=== PATIENT | female | born 1955 | race African-American/Black ===

== ENCOUNTER 2017-05-26 02:20 | Emergency (ER) | payer BC, SELFPAY | END 2017-05-26 03:03 | disposition home or self-care (01) | LOC: ERS 02:20 | DX: H61.23 Impacted cerumen, bilateral (principal); B35.0 Tinea barbae and tinea capitis; I10 Essential (primary) hypertension; F20.9 Schizophrenia, unspecified | CPT/HCPCS: 99283 ==

== ENCOUNTER 2018-04-16 04:58 | Emergency (ER) | payer SELFPAY | END 2018-04-16 05:39 | disposition home or self-care (01) | LOC: ERS 04:58 | DX: I10 Essential (primary) hypertension (principal); F20.9 Schizophrenia, unspecified | CPT/HCPCS: 99281 ==

== ENCOUNTER 2019-03-29 08:53 | Emergency (ER) | payer OTHER, SELFPAY ==
--- NOTE | 2019-03-29 09:44 | RAD ---
PORTABLE CHEST: Date: 03/29/2019 INDICATION: Cough. No comparison. FINDINGS: Heart size is upper normal. No infiltrate or significant vascular congestion or edema. No significant effusion. Vascular markings are upper normal. IMPRESSION: No acute findings. POS: [facility]
== END 2019-03-29 09:56 | disposition home or self-care (01) ==
LOC: ERS 08:53
DX: R05 Cough (principal); I10 Essential (primary) hypertension; F20.9 Schizophrenia, unspecified; Z79.899 Other long term (current) drug therapy
CPT/HCPCS: 71045

== ENCOUNTER 2019-11-08 10:56 | Outpatient (CLI) | payer OTHER ==
--- NOTE | 2019-11-08 11:28 | RAD ---
Exam:2 views right knee HISTORY: Disability exam. Pain. COMPARISON: None FINDINGS: Moderate degenerative change of the patellofemoral compartment and lateral compartment. Sma ll suprapatellar effusion may be present. No fracture or cortical irregularity. IMPRESSION: Degenerative change. No fracture.
== END 2019-11-08 10:57 | disposition home or self-care (01) ==
LOC: BICRAD 10:56
PROVIDERS: ATTEND Internal Medicine
DX: Z02.71 Encounter for disability determination (principal); M17.11 Unilateral primary osteoarthritis, right knee

== ENCOUNTER 2021-05-04 12:19 | Outpatient (CLI) | payer MEDICARE | END 2021-05-04 12:20 | disposition home or self-care (01) | LOC: BICMAMMO 12:19 | PROVIDERS: ATTEND Nurse Practitioner Family | DX: Z12.31 Encounter for screening mammogram for malignant neoplasm of breast (principal); Z80.3 Family history of malignant neoplasm of breast | CPT/HCPCS: 77063; 77067 ==